=== PATIENT | female | born 1980 | race Caucasian/White ===

== ENCOUNTER 2023-05-06 21:09 | Emergency (ER) | payer OTHER, SELFPAY ==
[2023-05-06 21:19] VITALS: BP 113/70; PULSE 79; RESP 18; TEMP 36.4; O2SAT 99; BMI 30.4
--- NOTE | 2023-05-06 21:35 | ED_ITS ---
HPI - URI/Sore Throat General Chief Complaint: Upper Respiratory Infection Stated Complaint: COVID POS HOME TEST Time Seen by Provider: 05/06/23 21:35 Source: patient Limitations: no limitations History of Present Illness HPI Narrative: 43-year-old female presents with sinus congestion and a cough for the past couple days and is requesting a COVID test to give to her sober living. She states that her roommate tested positive on an at home COVID test. Denies fever, sore throat, ear pain, SOB Related Data Home Medications Medication Instructions Recorded Confirmed clonidine HCl 0.1 mg tablet 0.1 mg PO BID PRN anxiety 05/06/23 05/06/23 escitalopram oxalate 20 mg tablet 20 mg PO DAILY 05/06/23 05/06/23 (Lexapro) gabapentin 300 mg capsule 300 mg PO TID 05/06/23 05/06/23 insulin glargine 100 unit/mL (3 60 unit subcut QAM 05/06/23 05/06/23 mL) subcutaneous pen (Lantus Solostar U-100 Insulin) metformin 500 mg tablet,extended 500 mg PO BID 05/06/23 05/06/23 release 24 hr methocarbamol 500 mg tablet 500 mg PO TID PRN muscle spasm 05/06/23 05/06/23 naltrexone microspheres 380 mg 380 mg IM .MONTHLY 05/06/23 05/06/23 intramuscular suspension,extended release (Vivitrol) Allergies Allergy/AdvReac Type Severity Reaction Status Date / Time No Known Drug Allergies Allergy Verified 05/06/23 21:19 Review of Systems ROS Status of ROS 10 or more systems reviewed and unremarkable except as noted in history and below [facility] Social History Smoking status: Current every day smoker Exam Narrative Exam Narrative: General: alert, no distress, talking in full an complete sentences skin: warm, dry, intact head: normocephalic, atraumatic eyes: PERRLA, EOMI, normal conjunctiva nose: nares patent throat: no stridor, uvula midline neck: supple, trachea midline cardiac: +S1/S1. no murmur respiratory: lungs CTA, non-labored, no wheezing, no retractions extremities: FROM x 4, strength +5/5 neuro: A&Ox3 psych: appropriate mood and affect, cooperative Constitutional Vital Signs, click to edit/add: Last Vital Signs Temp 97.6 F 05/06/23 21:19 Pulse 79 05/06/23 21:19 Resp 18 05/06/23 21:19 BP 113/70 05/06/23 21:19 Pulse Ox 99 05/06/23 21:19 O2 Del Method Room Air 05/06/23 21:19 Course Vital Signs Vital signs: Vital Signs Temperature 97.6 F 05/06/23 21:19 Pulse Rate 79 05/06/23 21:19 Respiratory Rate 18 05/06/23 21:19 Blood Pressure 113/70 05/06/23 21:19 Pulse Oximetry 99 05/06/23 21:19 Oxygen Delivery Method Room Air 05/06/23 21:19 Temperature 97.6 F 05/06/23 21:19 Pulse Rate 79 05/06/23 21:19 Respiratory Rate 18 05/06/23 21:19 Blood Pressure 113/70 05/06/23 21:19 Pulse Oximetry 99 05/06/23 21:19 Oxygen Delivery Method Room Air 05/06/23 21:19 MDM - URI/Sore Throat MDM Narrative Medical decision making narrative: Patient will be discharged home and can call medical records tomorrow to get a printout of her results to give to sober living. F/u with PCP. afebrile, not tachypneic, not tachycardic, tolerating p.o., not hypoxic, non toxic appearing and ambulating at baseline and hemodynamically stable to be d/c. answered all questions. pt in agreement with tx. educated when to return to ER. Lab Data Labs: Lab Results 05/06/23 Range/Units 21:41 SARS-CoV-2 (PCR) Negative (NEGATIVE) Discharge Plan Discharge Chief Complaint: Upper Respiratory Infection Clinical Impression: Viral infection Time of Disposition Decision: 21:37 Condition: Good Mode of Transportation: Private Vehicle Prescriptions / Home Meds: No Action metformin 500 mg tablet extended release 24 hr 500 mg PO BID insulin glargine [Lantus Solostar U-100 Insulin] 100 unit/mL (3 mL) insulin pen 60 unit subcut QAM escitalopram oxalate [Lexapro] 20 mg tablet 20 mg PO DAILY gabapentin 300 mg capsule 300 mg PO TID clonidine HCl 0.1 mg tablet 0.1 mg PO BID PRN (Reason: anxiety) methocarbamol 500 mg tablet 500 mg PO TID PRN (Reason: muscle spasm) Vivitrol 380 mg suspension,extended rel recon 380 mg IM .MONTHLY Instructions: Viral Syndrome (ED) Additional Instructions: call Medical records tomorrow to get a printout of your results Stand Alone Forms: Portal Instructions
[2023-05-06 22:43] LABS: SARS-CoV-2 Ag NEGATIVE (NEGATIVE)
[2023-05-07 16:20] LABS: SARS-CoV-2 NAA NOT DETECTED (NOT DETECTE)
== END 2023-05-06 21:50 ==
PROVIDERS: Physician Assistant; Emergency Provider Emergency Medicine
DX: B34.9 Viral infection, unspecified (principal); F17.210 Nicotine dependence, cigarettes, uncomplicated; Z79.899 Other long term (current) drug therapy; Z79.4 Long term (current) use of insulin; Z79.84 Long term (current) use of oral hypoglycemic drugs; Z20.822 Contact with and (suspected) exposure to COVID-19
CPT/HCPCS: 87635; 87811; 99283